=== PATIENT | female | born 1970 | race Hispanic/Latino ===

== ENCOUNTER 2018-06-16 06:50 | Observation (INO) | payer MEDICAID ==
[2018-06-15 12:55] VITALS: BP 117/71
[2018-06-15 12:58] LABS: BASOPHILS % (AUTO) 0.9 % (0.0-5.0); EOSINOPHILS % (AUTO) 0.6 % (0.0-8.0); HEMATOCRIT 39.1 % (36-48); LYMPHOCYTES % (AUTO) 34.4 % (21.0-51.0); MEAN CORPUSCULAR HEMOGLOBIN 26.4 pg (27.0-33.0); MEAN CORPUSCULAR HGB CONC 33.2 g/dL (32.0-36.0); MEAN CORPUSCULAR VOLUME 79.4 fL (79-99); MONOCYTES % (AUTO) 11.1 % (3.0-13.0); NUCLEATED RED BLOOD CELLS 0.1 % (0.0-0.19); PLATELET COUNT (AUTO) 281 K/uL (130-400); RED BLOOD CELL COUNT(AUTO) 4.93 MIL/uL (4.00-5.50); RED CELL DISTRIBUTION WIDTH 19.4 % (11.0-15.5); WHITE BLOOD COUNT (AUTO) 6.2 K/uL (4.8-10.8)
[2018-06-16] VITALS (20 sets, daily range): BP systolic 97–145; BP diastolic 51–99
[~2018-06-16] VITALS: Ht 157.5 cm; Wt 83.6 kg
[~2018-06-16 06:50] MED LIST: PREG50 PO
[2018-06-16] MEDS ORDERED: LACTATED RINGERS 1000ML 1,000 ML IV ONE (07:12)
[2018-06-16] MEDS: CEFAZOLIN SODIUM 1 GM VIAL ONE ×2 (07:21→08:45)
[2018-06-16] MEDS ORDERED: PROPOFOL 10 MG/ML 20ML VIAL IV ONE ×3 (08:30→10:11)
[2018-06-16] MEDS ORDERED: FENTANYL CITRATE PF 50 MCG/1 ML 2ML VIAL ONE ×4 (08:31→10:59)
[2018-06-16] MEDS ORDERED: MIDAZOLAM HCL 1 MG/ML 2ML VIAL ONE (08:31)
[2018-06-16] MEDS ORDERED: ROCURONIUM 10MG/1ML SYR 10 MG/ML ML ONE (08:50)
[2018-06-16] MEDS ORDERED: MEPERIDINE-PF 25 MG/ML SYG ONE (11:09)
[2018-06-16] MEDS ORDERED: SIMETHICONE 80 MG TAB.CHEW PO PRN (12:00)
[2018-06-16] MEDS ORDERED: BISACODYL 10 MG SUPP.RECT RC PRN (12:00)
[2018-06-16] MEDS ORDERED: ONDANSETRON HCL 4 MG/2 ML VIAL IVP PRN (12:00)
[2018-06-16] MEDS ORDERED: DOCUSATE SODIUM 100 MG CAP PO PRN (12:00)
[2018-06-16] MEDS ORDERED: PROMETHAZINE HCL 25 MG/ML 1ML AMPULE IM PRN (12:00)
[2018-06-16] MEDS: MEPERIDINE-PF 75 MG/ML SYG IM PRN ×3 (12:53→20:26)
[2018-06-16] MEDS: PROMETHAZINE HCL 25 MG/ML 1ML AMPULE IM PRN ×3 (12:53→20:26)
[2018-06-16] MEDS: DEXTROSE 5 %-0.45 % NACL 1,000 ML IV PRN ×2 (12:54→19:05)
[2018-06-16] MEDS: IBUPROFEN 600 MG TABLET PO PRN (17:55)
[2018-06-16] MEDS: ACETAMINOPHEN-CODEINE 300/30MG TAB PO PRN (19:07)
[2018-06-17] VITALS (7 sets, daily range): BP systolic 104–117; BP diastolic 57–75
[2018-06-17] MEDS: DEXTROSE 5 %-0.45 % NACL 1,000 ML IV PRN (04:26)
[2018-06-17] MEDS: ACETAMINOPHEN-CODEINE 300/30MG TAB PO PRN ×3 (04:43→15:36)
[2018-06-17 05:28] LABS: HEMATOCRIT 36.2 % (36-48); MEAN CORPUSCULAR HEMOGLOBIN 26.5 pg (27.0-33.0); MEAN CORPUSCULAR HGB CONC 33.7 g/dL (32.0-36.0); MEAN CORPUSCULAR VOLUME 78.6 fL (79-99); PLATELET COUNT (AUTO) 287 K/uL (130-400); RED CELL DISTRIBUTION WIDTH 18.9 % (11.0-15.5); WHITE BLOOD COUNT (AUTO) 11.6 K/uL (4.8-10.8)
[2018-06-17] MEDS ORDERED: BISACODYL 10 MG SUPP.RECT RC PRN (08:15)
[2018-06-17] MEDS ORDERED: IBUPROFEN 800 MG TAB PO PRN (08:15)
[2018-06-17] MEDS ORDERED: DOCUSATE SODIUM 100 MG CAP PO PRN (08:15)
[2018-06-17] MEDS ORDERED: HYDROCODONE/ACETAMINOPHEN 5/325 MG TAB PO PRN (08:15)
[2018-06-17] MEDS: SIMETHICONE 80 MG TAB.CHEW PO PRN ×2 (09:42→15:13)
[2018-06-17] MEDS: IBUPROFEN 600 MG TABLET PO PRN (09:52)
== END 2018-06-17 17:35 | disposition home or self-care (01) ==
LOC: DAH 06:50 → DAHIP 06:51 → WSH 11:45
PROVIDERS: ADMIT Obstetrics & Gynecology; ATTEND Obstetrics & Gynecology
DX: D50.0 Iron deficiency anemia secondary to blood loss (chronic) (principal); N92.0 Excessive and frequent menstruation with regular cycle; D25.9 Leiomyoma of uterus, unspecified; Z82.49 Family history of ischemic heart disease and other diseases of the circulatory system; Z83.3 Family history of diabetes mellitus; K66.0 Peritoneal adhesions (postprocedural) (postinfection); Z98.891 History of uterine scar from previous surgery; Z23 Encounter for immunization
CPT/HCPCS: 36415 ×2; 58552; 85025; 85027; 86850; 86900; 86901; 88307; 90471; 90686; 96372; A4215; A4218; A4351; A4510; A4600; A4649 ×3; C1769 ×2; G0378 ×35; J0690; J2175 ×4; J2250; J2550 ×3; J2704 ×3; J3010 ×4; J7030; J7120 ×2; Q2038

== ENCOUNTER → 2018-12-11 | Outpatient (CLI) | payer MEDICAID | END | disposition home or self-care (01) | LOC: RAH 09:38 | DX: Z12.31 Encounter for screening mammogram for malignant neoplasm of breast (principal) | CPT/HCPCS: 77067 ==

== ENCOUNTER 2019-01-01 14:04 | Emergency (ER) | payer MEDICAID ==
[2019-01-01] MEDS ORDERED: IOHEXOL-350 75 ML VIAL IV ONE (15:17)
[2019-01-01 15:19] LABS: APPEARANCE,URINE Clear (CLEAR); BILIRUBIN,URINE Negative (NEGATIVE); COLOR,URINE Dark Yellow (YELLOW); GLUCOSE, URINE (UA) Negative (NEGATIVE); KETONES,URINE Trace mg/dL (NEGATIVE); LEUKOCYTE ESTERASE ,URINE Negative (NEGATIVE); NITRATE,URINE Negative (NEGATIVE); OCCULT BLOOD,URINE Negative (NEGATIVE); PH,URINE 6.5 (5.0-8.0); PROTEIN,URINE Negative (NEGATIVE); UROBILINOGEN,URINE 0.2 mg/dL (0.2-1.0)
[2019-01-01] MEDS ORDERED: ONDANSETRON HCL 4 MG/2 ML VIAL ONE (15:22)
[2019-01-01] MEDS ORDERED: MORPHINE SULFATE 4 MG/1ML SYG ONE (15:22)
[2019-01-01 15:27] LABS: BASOPHILS % (AUTO) 0.5 % (0.0-5.0); EOSINOPHILS % (AUTO) 0.6 % (0.0-8.0); HEMATOCRIT 39.3 % (36-48); MEAN CORPUSCULAR HEMOGLOBIN 29.6 pg (27.0-33.0); MEAN CORPUSCULAR HGB CONC 34.2 g/dL (32.0-36.0); MEAN CORPUSCULAR VOLUME 86.7 fL (79-99); NEUTROPHILS % (AUTO) 62.9 % (40.0-77.0); NUCLEATED RED BLOOD CELLS 0.1 % (0.0-0.19); PLATELET COUNT (AUTO) 227 K/uL (130-400); RED BLOOD CELL COUNT(AUTO) 4.54 MIL/uL (4.00-5.50); RED CELL DISTRIBUTION WIDTH 14.3 % (11.0-15.5); WHITE BLOOD COUNT (AUTO) 8.6 K/uL (4.8-10.8)
[2019-01-01 15:41] LABS: CREATININE 0.7 mg/dL (0.5-1.5)
[2019-01-01 15:45] LABS: ALBUMIN 3.3 g/dL (3.5-5.0); BILIRUBIN,TOTAL 0.3 mg/dL (0.2-1.0); TOTAL PROTEIN, SERUM 7.7 g/dL (6.0-8.3)
[2019-01-01] MEDS ORDERED: AMOXICILLIN/POTASSIUM CLAV 875-125 TABLET PO ONE (16:40)
== END 2019-01-01 17:01 | disposition home or self-care (01) ==
LOC: EDH 14:04
DX: K57.32 Diverticulitis of large intestine without perforation or abscess without bleeding (principal); J45.909 Unspecified asthma, uncomplicated; Z90.49 Acquired absence of other specified parts of digestive tract; Z90.710 Acquired absence of both cervix and uterus; Z98.890 Other specified postprocedural states
CPT/HCPCS: 36415; 74177; 80053; 81003; 82150; 83690; 85025; 96374; 96375; 99284; J2270; J2405; Q9967

== ENCOUNTER 2019-03-30 03:06 | Emergency (ER) | payer MEDICAID ==
[2019-03-30] MEDS ORDERED: DiphenhydrAMINE HCL 50 MG/ML VIAL ONE (03:42)
[2019-03-30 04:04] LABS: APPEARANCE,URINE Clear (CLEAR); BILIRUBIN,URINE Negative (NEGATIVE); COLOR,URINE Yellow (YELLOW); GLUCOSE, URINE (UA) Negative (NEGATIVE); KETONES,URINE Negative (NEGATIVE); LEUKOCYTE ESTERASE ,URINE Negative (NEGATIVE); NITRATE,URINE Negative (NEGATIVE); OCCULT BLOOD,URINE Negative (NEGATIVE); PH,URINE 6.5 (5.0-8.0); PROTEIN,URINE Negative (NEGATIVE); UROBILINOGEN,URINE 0.2 mg/dL (0.2-1.0)
[2019-03-30 04:04] LABS: BASOPHILS % (AUTO) 0.6 % (0.0-5.0); HEMATOCRIT 38.4 % (36-48); LYMPHOCYTES % (AUTO) 43.3 % (21.0-51.0); MEAN CORPUSCULAR HEMOGLOBIN 29.6 pg (27.0-33.0); MEAN CORPUSCULAR HGB CONC 34.1 g/dL (32.0-36.0); MONOCYTES % (AUTO) 8.7 % (3.0-13.0); NEUTROPHILS % (AUTO) 46.4 % (40.0-77.0); NUCLEATED RED BLOOD CELLS 0.1 % (0.0-0.19); PLATELET COUNT (AUTO) 209 K/uL (130-400); RED BLOOD CELL COUNT(AUTO) 4.41 MIL/uL (4.00-5.50); RED CELL DISTRIBUTION WIDTH 13.7 % (11.0-15.5)
[2019-03-30 04:15] LABS: CREATININE 0.7 mg/dL (0.5-1.5); POTASSIUM 3.4 mmol/L (3.5-5.1)
[2019-03-30 04:19] LABS: ALBUMIN 3.3 g/dL (3.5-5.0); BILIRUBIN,TOTAL 0.2 mg/dL (0.2-1.0); TOTAL PROTEIN, SERUM 7.1 g/dL (6.0-8.3)
[2019-03-30] MEDS ORDERED: LORAZEPAM 1 MG TABLET ONE (05:32)
== END 2019-03-30 08:09 | disposition home or self-care (01) ==
LOC: EDH 03:06
DX: F43.20 Adjustment disorder, unspecified (principal); J45.909 Unspecified asthma, uncomplicated; M06.9 Rheumatoid arthritis, unspecified; Z88.7 Allergy status to serum and vaccine
CPT/HCPCS: 36415; 71046; 80053; 81003; 82550; 84484 ×2; 85025; 85378; 93005 ×2; 96372; 99285; J1200

== ENCOUNTER 2019-04-25 03:04 | Emergency (ER) | payer MEDICAID ==
[2019-04-25] MEDS ORDERED: PANTOPRAZOLE 40 MG/VIAL IVP ONE (03:05)
[2019-04-25] MEDS ORDERED: DiphenhydrAMINE HCL 50 MG/ML VIAL ONE (04:57)
[2019-04-25] MEDS ORDERED: FAMOTIDINE/PF 20 MG/2 ML VIAL IV ONE (04:58)
[2019-04-25] MEDS ORDERED: METOCLOPRAMIDE 10 MG/2 ML VIAL ONE (04:59)
[2019-04-25 05:17] LABS: BASOPHILS % (AUTO) 0.4 % (0.0-5.0); EOSINOPHILS % (AUTO) 0.2 % (0.0-8.0); HEMATOCRIT 39.8 % (36-48); MEAN CORPUSCULAR HEMOGLOBIN 29.7 pg (27.0-33.0); MEAN CORPUSCULAR HGB CONC 34.1 g/dL (32.0-36.0); MEAN CORPUSCULAR VOLUME 87.2 fL (79-99); MONOCYTES % (AUTO) 6.2 % (3.0-13.0); NEUTROPHILS % (AUTO) 66.2 % (40.0-77.0); PLATELET COUNT (AUTO) 200 K/uL (130-400); RED BLOOD CELL COUNT(AUTO) 4.56 MIL/uL (4.00-5.50); RED CELL DISTRIBUTION WIDTH 13.7 % (11.0-15.5)
[2019-04-25 05:28] LABS: CREATININE 0.7 mg/dL (0.5-1.5); POTASSIUM 3.3 mmol/L (3.5-5.1)
[2019-04-25 05:33] LABS: ALBUMIN 3.5 g/dL (3.5-5.0); BILIRUBIN,TOTAL 0.2 mg/dL (0.2-1.0); INR 0.96 (0.85-1.15); PARTIAL THROMBOPLASTIN TIME 26.2 SEC (26.3-35.5); PROTHROMBIN TIME 10.1 SEC (9.6-11.6); TOTAL PROTEIN, SERUM 7.4 g/dL (6.0-8.3)
[2019-04-25] MEDS ORDERED: LIDOCAINE HCL 2% VISCOUS 15 ML UDCUP ONE (06:11)
[2019-04-25] MEDS ORDERED: MAG HYDROX/AL HYDROX/SIMETH ES 30 ML SUSP UDCUP ONE (06:11)
== END 2019-04-25 06:30 | disposition home or self-care (01) ==
LOC: EDH 03:04
DX: K44.9 Diaphragmatic hernia without obstruction or gangrene (principal); R10.13 Epigastric pain; J45.909 Unspecified asthma, uncomplicated; M79.7 Fibromyalgia; M06.9 Rheumatoid arthritis, unspecified; Z88.7 Allergy status to serum and vaccine
CPT/HCPCS: 36415; 71046; 74018; 80053; 83690; 84484; 85025; 85610; 85730; 93005; 96374; 96375; 99285; C9113; J1200; J2765; J3490

== ENCOUNTER → 2019-05-03 | Outpatient (CLI) | payer MEDICAID ==
[2019-05-03 10:36] LABS: INR 0.96 (0.85-1.15); PARTIAL THROMBOPLASTIN TIME 27.5 SEC (26.3-35.5); PROTHROMBIN TIME 10.1 SEC (9.6-11.6)
--- NOTE | 2019-05-03 11:20 | NUR ---
U/S GUIDED FINE NEEDLE ASPIRATION OF POST OP ABDOMINAL SEROMA PROCEDURE PERFORMED BY DR. PAYNE. PUNCTURE SITE TO THE MIDLINE LOWER ABDOMEN. SCANT AMOUNT OF SEROSANGUINEOUS FLUID ASPIRATED COLLECTED FOR CULTURE AND PATHOLOGY, SENT TO LAB. END OF PROCEDURE AT 1125. CATHETER REMOVED AND DRESSING APPLIED. NO BLEEDING NOTED. DISCHARGE INSTRUCTIONS GIVEN TO PATIENT AND FAMILY, VERBALIZED UNDERSTANDING. DISCHARGED AMBULATORY, STABLE, AAO X 3, WITH NO COMPLAINS OF PAIN.
== END ==
LOC: RAH 09:06
PROVIDERS: ATTEND Surgery
DX: L76.33 Postprocedural seroma of skin and subcutaneous tissue following a dermatologic procedure (principal); K21.9 Gastro-esophageal reflux disease without esophagitis; J45.909 Unspecified asthma, uncomplicated; M19.90 Unspecified osteoarthritis, unspecified site; Z79.01 Long term (current) use of anticoagulants; Z79.899 Other long term (current) drug therapy; Z90.49 Acquired absence of other specified parts of digestive tract; Z98.890 Other specified postprocedural states; Z90.89 Acquired absence of other organs
CPT/HCPCS: 10005; 10160; 36415; 76942; 85610; 85730; 87070; 87076; 88108; 88305

== ENCOUNTER 2019-09-16 19:40 | Emergency (ER) | payer MEDICAID ==
[2019-09-16] MEDS ORDERED: LIDOCAINE HCL 1% 20 ML VIAL ONE (19:48)
[2019-09-16] MEDS ORDERED: ACETAMINOPHEN EXTRA STRENGTH 500 MG TABLET ONE (20:05)
[2019-09-16] MEDS ORDERED: TETANUS/DIPHTHERIA TOXOID [ADULT] 0.5 ML VIAL IM ONE (20:06)
[2019-09-16] MEDS ORDERED: KETOROLAC TROMETHAMINE 15MG/ML ONE (20:57)
== END 2019-09-16 22:06 | disposition home or self-care (01) ==
LOC: EDH 19:40
DX: S06.0X0A Concussion without loss of consciousness, initial encounter (principal); S01.01XA Laceration without foreign body of scalp, initial encounter; J45.909 Unspecified asthma, uncomplicated; M06.9 Rheumatoid arthritis, unspecified; Z90.710 Acquired absence of both cervix and uterus; Z98.890 Other specified postprocedural states; Z88.7 Allergy status to serum and vaccine; W18.09XA Striking against other object with subsequent fall, initial encounter; Y93.02 Activity, running; Y92.098 Other place in other non-institutional residence as the place of occurrence of the external cause; Y99.8 Other external cause status
CPT/HCPCS: 12034; 90471; 90714; 96374; 99284; J1885

== ENCOUNTER 2019-09-24 22:34 | Emergency (ER) | payer MEDICAID ==
[2019-09-25] MEDS ORDERED: LIDOCAINE 1%-EPI 1:100,000 20 ML VIAL IJ ONE (01:31)
== END 2019-09-25 02:07 | disposition home or self-care (01) ==
LOC: EDH 22:34
DX: S00.03XA Contusion of scalp, initial encounter (principal); M79.7 Fibromyalgia; M06.9 Rheumatoid arthritis, unspecified; Z98.890 Other specified postprocedural states; Z88.7 Allergy status to serum and vaccine; X58.XXXA Exposure to other specified factors, initial encounter; Y93.89 Activity, other specified; Y92.89 Other specified places as the place of occurrence of the external cause; Y99.8 Other external cause status
CPT/HCPCS: 10140; 70450; 99284; J3490

== ENCOUNTER → 2021-01-23 | Outpatient (CLI) | payer MEDICAID | END | disposition home or self-care (01) | LOC: RAH 14:29 | PROVIDERS: ATTEND Obstetrics & Gynecology | DX: Z12.31 Encounter for screening mammogram for malignant neoplasm of breast (principal) | CPT/HCPCS: 77067 ==

== ENCOUNTER 2025-08-07 14:57 | Emergency (ER) | payer BC, MEDICAID ==
[~2025-08-07] VITALS: Ht 154.9 cm; Wt 78.9 kg
--- NOTE | 2025-08-07 15:14 | ERN ---
ED Note History of Present Illness Stated Complaint: DIZZY Chief Complaint: Dizzy/Light Headed Time Seen by MD: 15:01 Dictation: PATIENT IS A 54-YEAR-OLD FEMALE COMING IN TODAY FROM EMS WITH COMPLAINTS OF DIZZINESS VERTIGO WORSE WHEN SHE TURNS HER HEAD AND NAUSEA ONSET WAS YESTERDAY MORNING. SHE STATES SHE HAS FELT LIKE SHE HAS BEEN UNBALANCED ON HER FEET DUE TO THE DIZZINESS. STATES SHE TOOK A MOTHER'S MECLIZINE EARLIER TODAY TO SEE IF THAT WOULD HELP. CURRENTLY ALERT AND ORIENTED X4, NIH IS 0. BILATERAL HORIZONTAL NYSTAGMUS NOTED ON PHYSICAL EXAM. Allergies: Coded Allergies: pneumococcal vaccine (Unverified Allergy, Unknown, EXTREME SWOLLEN ENTIRE INJECTION ARM , 06/15/18) Home Meds Reported Medications Pregabalin (Lyrica) 50 Mg Cap, 50 MG PO TID, CAP 06/15/18 Past Medical History Past Medical History: Asthma, Diabetes-Type II, High Cholesterol Surgical History: Hysterectomy Surgical History Other: ABD HERNIA REPAIR History: Not Applicable RN Note Reviewed/Agreed w/PFSH: Yes Review of System Dictation CONSTITUTIONAL: NEGATIVE EXCEPT FOR HPI HEAD/FACE: NEGATIVE EXCEPT FOR HPI EENT: NEGATIVE EXCEPT FOR HPI RESPIRATORY: NEGATIVE EXCEPT FOR HPI GASTROINTESTINAL/ABDOMINAL: NEGATIVE EXCEPT FOR HPI NAUSEA GENITOURINARY: NEGATIVE EXCEPT FOR HPI MUSCULOSKELETAL: NEGATIVE EXCEPT FOR HPI INTEGUMENTARY: NEGATIVE EXCEPT FOR HPI NEUROLOGICAL/PSYCH: NEGATIVE EXCEPT FOR HPI GENERALIZED HEADACHE/DIZZINESS HEMATOLOGIC/LYMPHATIC: NEGATIVE EXCEPT FOR HPI ALL SYSTEMS NEGATIVE, EXCEPT NOTED ABOVE. 13 POINT REVIEW OF SYSTEMS ASSESSED AND ALL NEGATIVE EXCEPT FOR ABOVE. Initial Vital Sign VS Vital Signs Date Time Temp Pulse Resp B/P (MAP) Pulse Ox O2 Delivery O2 Flow Rate FiO2 08/07/25 15:00 97.9 78 18 123/73 97 Room Air 0 08/07/25 17:10 21 Physical Exam Dictation VITAL SIGNS REVIEWED GENERAL APPEARANCE: ALERT, ORIENTED X 3, NO ACUTE DISTRESS, WELL DEVELOPED, NOURISHED. HEAD AND FACE: NON-TRAUMATIC. EYES: PERRL, PINK CONJUNCTIVAS, BILATERAL HORIZONTAL NYSTAGMUS. NO PTOSIS EOMS INTACT EARS: PINNAS INTACT AND NO SIGNS OF TRAUMA OR ERYTHEMA EAR CANALS CLEAR AND NO DISCHARGE TM NO ERYTHEMA NOSE: NO DISCHARGE, NO BLEEDING. OROPHARYNX: MOUTH NORMAL, TONGUE PINK, PHARYNX CLEAR,NO ERYTHEMA, TONSILS NO EXUDATES, NO ABSCESSES NOTED, MUCOUS MEMBRANE MOIST NECK: SUPPLE, NON-TENDER, NO THYROMEGALY, NO MASSES, NO JVD, NO BRUITS BREAST:DEFERRED CHEST:NO TENDERNESS, NO CREPITUS, NO PARADOXICAL MOVEMENT, NO RETRACTIONS LUNGS:CLEAR, WELL-VENTILATED, SYMMETRIC, NO RALES, NO WHEEZING, NO RHONCHI, NO STRIDOR, GOOD BREATH SOUNDS BILATERALLY HEART: REGULAR RATE, REGULAR RHYTHM, NO MURMUR, NO GALLOPS VASCULAR: NO PERIPHERAL EDEMA, ABDOMEN: SOFT, POSITIVE BOWEL SOUNDS, NONDISTENDED, NO GUARDING, NONTENDER, NO REBOUND, NO MASSES NO HEPATOMEGALY, NO SPLENOMEGALY, NO JORDAN'S SIGN, NO HERNIAS. RECTAL: DEFERRED GENITAL: DEFERRED NEUROLOGICAL: NORMAL SPEECH, MOTOR FUNCTION INTACT, SENSORY FUNCTION INTACT NIH IS 0 MUSCULOSKELETAL: NECK NONTENDER, FULL RANGE OF MOTION, BACK NONTENDER, FULL RANGE OF MOTION, EXTREMITIES: NONTENDER, FULL RANGE OF MOTION SKIN: COLOR PINK, DRY, NO TURGOR, NO RASH, NO LACERATIONS, NO ABRASIONS, NO CONTUSIONS. LYMPHATIC: DEFERRED Results (Laboratory/Radiology) Laboratory/Radiology Laboratory Tests Test 08/07/25 15:19 White Blood Count 7.1 K/uL (4.8-10.8) Red Blood Count 4.84 MIL/uL (4.00-5.50) Hemoglobin 14.5 g/dL (12.0-16.0) Hematocrit 43.4 % (36-48) Mean Corpuscular Volume 89.7 fL (79-99) Mean Corpuscular Hemoglobin 30.0 pg (27.0-33.0) Mean Corpuscular Hemoglobin Concent 33.4 g/dL (32.0-36.0) Red Cell Distribution Width 13.2 % (11.0-15.5) Platelet Count 215 K/uL (130-400) Mean Platelet Volume 10.8 fL (7.5-10.5) H Immature Granulocyte % (Auto) 0.3 % (0-1) Neutrophils (%) (Auto) 59.0 % (40.0-77.0) Lymphocytes (%) (Auto) 31.5 % (21.0-51.0) Monocytes (%) (Auto) 8.2 % (3.0-13.0) Eosinophils (%) (Auto) 0.7 % (0.0-8.0) Basophils (%) (Auto) 0.3 % (0.0-5.0) Neutrophils # (Auto) 4.2 K/uL (1.8-7.7) Lymphocytes # (Auto) 2.2 K/uL (1.0-4.8) Monocytes # (Auto) 0.6 K/uL (0.1-1.0) Eosinophils # (Auto) 0.05 K/uL (0.00-0.70) Basophils # (Auto) 0.02 K/uL (0.00-0.20) Absolute Immature Granulocyte (auto 0.02 K/uL (0-1) Nucleated Red Blood Cells 0.0 % (0.0-0.19) Sodium Level 136 mmol/L (136-145) Potassium Level 3.7 mmol/L (3.5-5.1) Chloride Level 101 mmol/L (101-111) Carbon Dioxide Level 29 mmol/L (21-32) Blood Urea Nitrogen 9 mg/dL (7-18) Creatinine 0.6 mg/dL (0.5-1.0) Glomerular Filtration Rate Calc 108 mL/min (>90) Random Glucose 115 mg/dL (70-105) H Total Calcium 9.1 mg/dL (8.5-10.1) Troponin I High Sensitivity < 4 ng/L (4-50) L 1630/CALLED AND SPOKE WITH NATALY AT [facility] TO HAVE CT OF THE HEAD EXPEDITED. SAID SHE WILL FOLLOW UP CT Head Without IV contrast. CLINICAL HISTORY: GENERALIZED HEADACHE WITH VERTIGO ONSET YESTERDAY TECHNIQUE: Axial computed tomography images of the head/brain without intravenous contrast. COMPARISON: None provided. FINDINGS: BRAIN: No evidence of acute hemorrhage. No mass lesion. No CT evidence for acute territorial infarct. No midline shift or extra-axial collections. Moderate age related cortical atrophy with sulcal and ventricular prominence. VENTRICLES: No hydrocephalus. ORBITS: The orbits are unremarkable. SINUSES AND MASTOIDS: The paranasal sinuses and mastoid air cells are clear. Opacification of right maxillary sinus BONES: No fracture. SOFT TISSUES: Unremarkable. IMPRESSION: 1. No acute intracranial findings. 2. Opacification of right maxillary sinus. /[facility] Reviewed?: Yes EKG Comment: 1533/EKG SINUS RHYTHM/HEART RATE 69/AXIS NORMAL NONSPECIFIC CHANGES IN ANTERIOR LEADS. ED Course ED Course Orders Procedure Category Date Status Time Meclizine Hcl 25 Mg PHA 08/07/25 Complete (Antivert 25 Mg) 15:30 Methylprednisolone PHA 08/07/25 Complete Succ 125mg (Solu-Medr 15:30 Ct Head/Brain W/O CT 08/07/25 Resulted Contrast 15:11 Cbc With Differential LAB 08/07/25 Complete 15:11 Troponin I High LAB 08/07/25 Complete Sensitivity 15:11 12 Lead Ekg Tracing- EKG 08/07/25 Complete Technical 15:11 0.9%Nacl 1000ml (Ns PHA 08/07/25 Complete 1000ml) 15:30 Ondansetron 4mg Inj PHA 08/07/25 Complete (Zofran 4mg Inj) 15:30 Basic Metabolic Panel LAB 08/07/25 Complete 15:11 Current Medications Medications (Trade) Dose Ordered Sig/Nj Route PRN Reason Start Time Stop Time Status Last Admin Dose Admin Meclizine HCl (ANTIvert 25 mg) 50 mg ONCE ONCE PO 08/07/25 15:30 08/07/25 15:31 DC 08/07/25 15:47 Methylprednisolone Sodium Succinate (Solu-medROL 125MG) 125 mg ONCE ONCE IVP 08/07/25 15:30 08/07/25 15:31 DC 08/07/25 15:47 Ondansetron HCl (zoFRAN 4MG INJ) 4 mg ONCE ONCE IVP 08/07/25 15:30 08/07/25 15:31 DC 08/07/25 15:48 Sodium Chloride 1,000 ml @ 0 mls/hr ONCE ONCE IV 08/07/25 15:30 08/07/25 15:31 DC 08/07/25 15:48 Vital Signs Date Time Temp Pulse Resp B/P (MAP) Pulse Ox O2 Delivery O2 Flow Rate FiO2 08/07/25 17:10 97.9 75 16 127/59 97 Room Air* 0 21 08/07/25 15:00 97.9 78 18 123/73 97 Room Air 0 1725/PATIENT WILL BE DISCHARGED HOME NEURO INTACT PATIENT STATES SHE FEELS IMPROVED DIZZINESS AND VERTIGO AFTER TREATMENT WITH STEROIDS FLUIDS AND MECLIZINE. DISCHARGED HOME WITH MEDROL DOSEPAK AND MECLIZINE TOLD SEE HER PRIMARY CARE DOCTOR ON FRIDAY OR FRIDAY FOR FOLLOW UP AND MANAGEMENT HEART Score Response (Comments) Value EKG: Repolarization changes 1 Age: 45-65yrs (+1) 1 Risk Factors: 1-2 risk factors (+1) 1 Initial Troponin: Normal limit (0) 0 Total 3 Medical Decision Making MDM MDM: DIFFERENTIAL DIAGNOSIS: ACS/AMI/CVA/VERTIGO/LABYRINTHITIS/ELECTROLYTE IMBALANCE/DEHYDRATION/ARRHYTHMIA/CENTRAL NERVOUS SYSTEM LESION RATIONALE: TESTS CONSIDERED AND ORDERED SECONDARY TO SHARED DECISION MAKING INC LUDE: EKG/LABS/RADIOLOGY PREVIOUS OUTSIDE RECORDS REVIEWED: OLD ER VISITS. RISK OF COMPLICATION AND/OR MORBIDITY OR MORTALITY OF PATIENT MANAGEMENT: NONE MEDICATIONS-PER MEDICATION RECONCILIATION NEED FOR HOSPITALIZATION: PATIENT DOES NOT MEET CRITERIA FOR HOSPITALIZATION. NONE NEED FOR EMERGENCY MAJOR/MINOR SURGERY: NO THERE ARE NO SOCIAL CONCERNS WITH THIS PATIENT. PRESCRIPTION DRUG MANAGEMENT MECLIZINE/MEDROL DOSEPAK/ZOFRAN PRESCRIPTIONS WILL INCLUDE SYMPTOMATIC CARE PATIENT'S PRIOR EXTERNAL MEDICAL RECORDS FROM OTHER ER VISITS WERE REVIEWED BY ME INDICATED. PRIOR TESTING AND RESULTS FROM PREVIOUS VISITS WERE REVIEWED. PRIOR TESTS WERE TAKEN INTO ACCOUNT WITH MEDICAL DECISION MAKING AND RESOURCE UTILIZATION, INDEPENDENT HISTORIAN/HISTORIANS WERE USED TO OBTAIN COMPLETE MEDICAL HISTORY. I INDEPENDENTLY INTERPRETED THE TEST THAT WERE PERFORMED, RESULTS WERE REVIEWED BY ME AND CONSIDERED FINDINGS ON RADIOLOGY IF ORDERED. MEDICAL MANAGEMENT AND EXAMINATION INTERPRETATION DISCUSSIONS WERE HAD BY ME WITH OTHER QUALIFIED HEALTHCARE PROFESSIONALS INDICATED FOR THE PATIENT'S CARE. DX & DISP Disposition: Discharge Departure Impression: Primary Impression: Benign positional vertigo Additional Impression: Acute labyrinthitis Condition: Stable Scripts Methylprednisolone (Medrol) 4 Mg Tab.ds.pk 1 TAB PO AD for 6 Days, #21 TAB 0 Refills 6 on day 1 then reduce by one tablet daily until gone Prov: IMANI HOOD [employer] 08/07/25 Ondansetron (Ondansetron Odt) 4 Mg Tab.rapdis 4 MG PO Q6HPRN PRN for nausea, #16 TAB 0 Refills Prov: IMANI HOOD [employer] 08/07/25 Meclizine HCl (Meclizine HCl) 25 Mg Tablet 25 MG PO TID for vertigo, #30 TAB 0 Refills Prov: IMANI HOOD [employer] 08/07/25 Additional Instructions: FOLLOW-UP WITH PRIMARY CARE PROVIDER IN 1 TO 2 DAYS. TAKE MEDICATIONS DIRECTED HERE IN THE EMERGENCY ROOM. OKAY TO CONTINUE HOME MEDICATIONS UNLESS OTHERWISE DISCUSSED DURING YOUR VISIT IN THE EMERGENCY ROOM TODAY. RETURN TO YOUR NEAREST EMERGENCY ROOM IF SYMPTOMS WORSEN OR IF THERE IS NO IMPROVEMENT. CALL 911 IF YOU NEED IMMEDIATE ASSISTANCE. TAKE TYLENOL OR MOTRIN [id number] NEEDED AND IF NO CONTRAINDICATIONS ARE PRESENT. INCREASE ORAL HYDRATION. A WOUND CULTURE OR URINE CULTURE WAS ORDERED HERE IN THE EMERGENCY ROOM DEPARTMENT PLEASE FOLLOW-UP WITH PRIMARY CARE PROVIDER AND ADVISE THEM TO GET REPEAT PORTS FROM OUR FACILITY. IF YOU HAD ANY JAZZ WRAP/SPLINTS THAT WERE APPLIED HERE, PLEASE DO NOT REMOVE THEM UNTIL YOU SEE YOUR PRIMARY CARE OR SPECIALTY. TAKE MEDROL DOSEPAK DIRECTED UNTIL GONE. TAKE MECLIZINE EVERY8 HOURS FOR THE NEXT TWO DAYS. SEE YOUR PRIMARY CARE DOCTOR ON FRIDAY OR FRIDAY FOR FOLLOW UP AND MANAGEMENT. Referrals: KENNY GUEVARA (PCP) Time of Disposition: 17:26 I have reviewed the case, and I agree with, Diagnosis and Plan IMANI HOOD [employer] Aug 07, 2025 15:14
[2025-08-07 15:26] LABS: IMMATURE GRANULOCYTE ABSOLUTE 0.02 K/uL (0-1); NUCLEATED RED BLOOD CELLS 0.0 % (0.0-0.19); PLATELET COUNT (AUTO) 215 K/uL (130-400); RED BLOOD CELL COUNT(AUTO) 4.84 MIL/uL (4.00-5.50); RED CELL DISTRIBUTION WIDTH 13.2 % (11.0-15.5); WHITE BLOOD COUNT (AUTO) 7.1 K/uL (4.8-10.8)
[2025-08-07 15:36] LABS: CREATININE 0.6 mg/dL (0.5-1.0); GLOMERULAR FILTR. RATE CALC 108.0 mL/min (>90); GLUCOSE,RANDOM 115.0 mg/dL (70-105); SODIUM SERUM 136.0 mmol/L (136-145); UREA NITROGEN, BLOOD 9.0 mg/dL (7-18)
[2025-08-07] MEDS: 0.9%NACL 1000ML 1,000 ML IV ONE (15:48)
--- NOTE | 2025-08-07 17:09 | EKG ---
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
[2025-08-07 17:10] VITALS: BP 127/59; PULSE 75; RESP 16; TEMP 97.9; O2SAT 97
--- NOTE | 2025-08-07 17:18 | HMCIMG ---
EXAM: CT Head Without IV contrast. CLINICAL HISTORY: GENERALIZED HEADACHE WITH VERTIGO ONSET YESTERDAY TECHNIQUE: Axial computed tomography images of the head/brain without intravenous contrast. COMPARISON: None provided. FINDINGS: BRAIN: No evidence of acute hemorrhage. No mass lesion. No CT evidence for acute territorial infarct. No midline shift or extra-axial collections. Moderate age related cortical atrophy with sulcal and ventricular prominence. VENTRICLES: No hydrocephalus. ORBITS: The orbits are unremarkable. SINUSES AND MASTOIDS: The paranasal sinuses and mastoid air cells are clear. Opacification of right maxillary sinus BONES: No fracture. SOFT TISSUES: Unremarkable. IMPRESSION: 1. No acute intracranial findings. 2. Opacification of right maxillary sinus. /[place]
[2025-08-07] MEDS ORDERED: MECL-302 PO (17:27)
[2025-08-07] MEDS ORDERED: ONDA-243 PO (17:27)
[2025-08-07] MEDS ORDERED: METH4TAB3 PO (17:27)
== END 2025-08-07 17:42 | disposition home or self-care (01) ==
LOC: EDH 14:57
DX: H81.10 Benign paroxysmal vertigo, unspecified ear (principal); H83.09 Labyrinthitis, unspecified ear; E11.9 Type 2 diabetes mellitus without complications; E78.00 Pure hypercholesterolemia, unspecified; J45.909 Unspecified asthma, uncomplicated; Z79.899 Other long term (current) drug therapy; Z88.7 Allergy status to serum and vaccine; Z90.710 Acquired absence of both cervix and uterus; Z98.890 Other specified postprocedural states
CPT/HCPCS: 99284; 96374; 70450; 96375; 84484; 80048; 85025; 36415; 93005; J2919; J7030; J2405